=== PATIENT | female | born 1970 | race Caucasian/White ===

== ENCOUNTER 2016-06-28 10:18 | Observation (INO) | payer BC ==
[~2016-06-28] VITALS: Ht 157.5 cm; Wt 107.3 kg
[~2016-06-28 10:18] MED LIST: CLR10 PO
[2016-06-28] MEDS ORDERED: LISI-461 PO (10:40)
[2016-06-28] MEDS ORDERED: CEFD1CAP14 PO (10:43)
[2016-06-28] MEDS ORDERED: LEVO1TAB34 PO (10:43)
--- NOTE | 2016-06-28 11:13 | EMERGENCY ROOM VISIT NOTE ---
History Report prepared by Sherwin: Scout Membreno Under the Supervision of: Dr. Yina Matt M.D. First contact with patient: 10:28 Chief Complaint: NEURO SYMPTOMS Stated Complaint: NUMBNESS IN LEGS Nursing Triage Summary: pt was given levaquin for tx for pneumonia, spouse reports immediately after taking pt became very "jittery" bouncing off the david", then started with numbness in BLE History of Present Illness The patient is a 46 year old female who presents to the Emergency Room with complaints of persistent numbness in her legs that started 3 days ago. The patient notes that she started taking Levaquin 3 days ago for pneumonia and that her symptoms started after her first dose. Per patient's , the patient started acting "goofy" after the dose. The patient then started to complain of numbness and tingling in both of her lower extremities from her knees down to her toes. She notes that the discomfort started in her left leg and slowly her right leg has started to go completely numb. The patient is unsure of whether or not the symptoms started at her toes and kaitlynn up her leg. She also notes numbness, difficulty with coordination, and feeling jittery in her arms. She describes the weakness as feeling like she is going to collapse or fall over when she stands or walks. The patient notes she has been holding on to things to make sure she doesn't fall. The patient denies any history of problems with her legs and numbness before this episode. She presented to the ED today because her symptoms worsened. She was evaluated by Dr. Hoyt - internal medicine in the clinic today. After consultation with Dr Paul of neurology, it was determined that the pt should be evaluated acutely. The patient notes that she had a fever 6 days ago with her pneumonia symptoms, but denies fevers since then. She also denies numbness or tingling in her hands or losing control of her bowels or bladder. Source of History: patient Onset: 3 days ago Position: leg (bilateral) Timing: worsening, other (persistent ) Associated Symptoms: + fevers (6 days ago, since resolved), + numbness (legs ), + weakness (legs) Note: Other associated symptoms: tingling in lower legs, acting "goofy", difficulty with coordination, feeling jittery in arms Denies: numbness or tinglign in her hands Review of Systems See HPI for pertinent positives & negatives. A total of 10 systems reviewed and were otherwise negative. Past Medical & Surgical Medical Problems: (1) Allergic rhinitis (2) Hypertension (3) Paresthesia of bilateral legs (4) Surgical Problems: (1) H/O knee surgery Family History Diabetes mellitus FHx: hypertension No pertinent family history Social History Smoking Status: Never Smoker Drug Use: none Marital Status: Housing Status: lives with family Occupation Status: employed Current/Historical Medications Scheduled Cefdinir (Omnicef), 300 MG PO Q12H Lisinopril (Prinivil), 5 MG PO DAILY Loratadine (Claritin), 10 MG PO DAILY Allergies Coded Allergies: Sulfa Antibiotics (Verified Allergy, Unknown, Unknown reaction, 06/28/16) Levofloxacin (Verified Adverse Reaction, Intermediate, NUMBNESS, 06/29/16) LOWER EXTREMITY NUMBNESS FROM KNEES DOWN Ciprofloxacin (Verified Adverse Reaction, Mild, NAUSEA, 06/28/16) Guaifenesin (Verified Adverse Reaction, Mild, N/V, 06/28/16) Physical Exam Vital Signs Date Time Temp Pulse Resp B/P Pulse Ox O2 Delivery O2 Flow Rate FiO2 06/28/16 13:38 92 16 132/83 92 Room Air 06/28/16 13:33 101 06/28/16 12:08 82 16 159/88 98 Room Air 06/28/16 10:21 37.1 103 18 159/83 98 Room Air Physical Exam Vital signs reviewed. General: Obese generally well-appearing female, in no significant distress. HEENT: No scleral icterus, PERRLA, neck supple. Atraumatic. Cardiovascular: Regular rate and rhythm, no extra sounds. Pulmonary: Clear to auscultation bilaterally, normal work of breathing. Abdomen: Soft, nontender, nondistended, positive bowel sounds. Musculoskeletal: Atraumatic, no peripheral edema. Two plus deep tendon reflexes to bilateral patellar tendons. Full strength to bilateral lower extremity. Neurologic: Patient awake alert and oriented x 3, full strength in all 4 extremities. Cranial nerves 2 through 12 grossly intact. Skin: Warm, dry, no rash Medical Decision & Procedures ER Provider Diagnostic Interpretation: MRI results as stated below per interpretation by me and the radiologist: MRI OF THE LUMBAR SPINE WITHOUT CONTRAST CLINICAL HISTORY: Lumbar radiculopathy. Leg numbness. COMPARISON STUDY: No previous studies for comparison. TECHNIQUE: Utilizing a 1.5 Alondra magnet and dedicated coil, multiplanar, multiecho imaging of the lumbar spine was performed without IV contrast. FINDINGS: For purposes of numbering on this exam, the L5-S1 disc space is assigned to axial image 23 of 25. Alignment of lumbar spine is anatomic. Vertebral body heights are maintained. No intracanalicular mass or fluid collection is present. Paravertebral soft tissues are unremarkable. Note is made of an 8.2 x 6.8 cm midline fat-containing mass within the upper anterior aspect of the pelvis. The left ovary is likely visualized and therefore, this lesion may arise from the right ovary. L1-2: The central canal and neural foramen are patent. L2-3: The central canal and neural foramen are patent. L3-4: The central canal and neural foramen are patent. L4-5: The central canal and neural foramen are patent. L5-S1: The central canal and neural foramen are patent. IMPRESSION: 1. Unremarkable MRI of the lumbar spine. No disc herniation. No central canal or neural foraminal stenosis. 2. 8.2 x 6.8 cm midline fat-containing mass within the upper anterior pelvis. 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 A follow-up pelvic ultrasound is recommended. Electronically signed by: Gian Diggs M.D. 06/28/2016 1:20 PM Dictated Date/Time: 06/28/2016 1:12 PM Laboratory Results Test 06/28/16 11:55 Immature Granulocyte % (Auto) 0.3 % White Blood Count 11.44 K/uL (4.8-10.8) Red Blood Count 5.18 M/uL (4.2-5.4) Hemoglobin 14.7 g/dL (12.0-16.0) Hematocrit 44.0 % (37-47) Mean Corpuscular Volume 84.9 fL (80-100) Mean Corpuscular Hemoglobin 28.4 pg (25-34) Mean Corpuscular Hemoglobin Concent 33.4 g/dl (32-36) Platelet Count 303 K/uL (130-400) Mean Platelet Volume 9.1 fL (7.4-10.4) Neutrophils (%) (Auto) 66.5 % Lymphocytes (%) (Auto) 27.2 % Monocytes (%) (Auto) 3.9 % Eosinophils (%) (Auto) 1.8 % Basophils (%) (Auto) 0.3 % Neutrophils # (Auto) 7.60 K/uL (1.4-6.5) Lymphocytes # (Auto) 3.11 K/uL (1.2-3.4) Monocytes # (Auto) 0.45 K/uL (0.11-0.59) Eosinophils # (Auto) 0.21 K/uL (0-0.5) Basophils # (Auto) 0.04 K/uL (0-0.2) Immature Granulocyte # (Auto) 0.03 K/uL (0.00-0.02) Erythrocyte Sedimentation Rate 24 mm/hr (0-21) Magnesium Level 2.1 mg/dl (1.8-2.4) Total Bilirubin 0.3 mg/dl (0.2-1) Direct Bilirubin < 0.1 mg/dl (0-0.2) Aspartate Amino Transf (AST/SGOT) 17 U/L (15-37) Alanine Aminotransferase (ALT/SGPT) 29 U/L (12-78) Alkaline Phosphatase 74 U/L (45-117) Total Creatine Kinase 74 U/L (26-192) C-Reactive Protein 0.96 mg/dl (0-0.29) Total Protein 7.5 gm/dl (6.4-8.2) Albumin 3.5 gm/dl (3.4-5.0) Thyroid Stimulating Hormone (TSH) 1.460 uIu/ml (0.300-4.500) Laboratory results per my review. ED Course 1041: Past medical records reviewed. The patient was evaluated in room A4. A complete history and physical examination was performed. 1346: At this time, I discussed the patient's case with Dr. Humberto Hillman and he agreed with the treatment plan. He requested an MRI of her entire spine with and without contrast. He thinks that patient needs to be worked up in the hospital. 1426: At this time, I discussed the patient's case with Dr. Elio COELHO and she planned to discuss the patient's case with Dr. Humberto Hillman. 1515: At this time, Dr. Elio Hillman agreed to accept the patient. Medical Decision Differential diagnoses: Etiologies include lumbar disc herniation, myelopathy, Guillain-Hope syndrome, metabolic abnormality, or medication effect. This pt was evaluated and appeared to be in no distress. Pt admits that her symptoms are stable since the onset several days ago. DTR are intact. An MRI of lumbar spine was ordered to r/o radiculopathy. This study is negative for disc herniation or other spine concern, although a mass was visualized, approx 8 cm, was noted. 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 I did speak with Dr Paul who recommends inpatient evaluation for possible paraneoplastic syndrome vs GBS. He has also recommended a full spine MRI with and without contrast. Pt was d/w the hospitalist service who agreed to evaluated the pt. Please see their notes for further details. Consults Time Called: 1341 Consulting Physician: Dr. Paul - Neurology Rafy Returned Call: [phone] At this time, I discussed the patient's case with Dr. Paul and he agreed with the treatment plan. He requested an MRI of her entire spine with and without contrast. He thinks that patient needs to be worked up in the hospital. Additional Consults: Time Called: 1422 Consulted Physician: Dr. Ballard - Rinku Hillman Returned Call: 1424 Additional Comments: At this time, I discussed the patient's case with Dr. Ballard and she agreed to discuss the patient's case with Dr. Paul. Time Called: 1510 Consulted Physician: Dr. Ballard - Rinku Hillman Returned Call: [phone] Additional Comments: At this time, Dr. Ballard agreed to accept the patient. Impression Primary Impression: Paresthesia of bilateral legs Scribe Attestation The scribe's documentation has been prepared under my direction and personally reviewed by me in its entirety. I confirm that the note above accurately reflects all work, treatment, procedures, and medical decision making performed by me. Departure Information Dispostion Being Evaluated By Hospitalist Prescriptions Cefdinir (Omnicef) 300 Mg Cap 300 MG PO Q12H for 2 Days, #4 CAP X 10 DAYS (FILLED 06/22/16) Prov: Tyler Gaytan, 06/29/16 Referrals Mio Hoyt D.O. (PCP)
[2016-06-28 12:31] LABS: BLOOD UREA NITROGEN 13 mg/dl (7-18); CREATININE 0.66 mg/dl (0.60-1.20); GLUCOSE 79 mg/dl (70-99)
[2016-06-28 12:32] LABS: ALT/SGPT 29 U/L (12-78); BUN/CREATININE RATIO 19.1 (10-20); C-REACTIVE PROTEIN 0.96 mg/dl (0-0.29); CALCIUM 9.4 mg/dl (8.5-10.1); CARBON DIOXIDE 24 mmol/L (21-32); CHLORIDE 105 mmol/L (98-107); MAGNESIUM 2.1 mg/dl (1.8-2.4); POTASSIUM 3.9 mmol/L (3.5-5.1); SODIUM 140 mmol/L (136-145)
[2016-06-28 12:36] LABS: ALKALINE PHOSPHATASE 74 U/L (45-117); AST/SGOT 17 U/L (15-37)
--- NOTE | 2016-06-28 13:21 | DIAGNOSTIC IMAGING REPORT ---
MRI OF THE LUMBAR SPINE WITHOUT CONTRAST CLINICAL HISTORY: Lumbar radiculopathy. Leg numbness. COMPARISON STUDY: No previous studies for comparison. TECHNIQUE: Utilizing a 1.5 Alondra magnet and dedicated coil, multiplanar, multiecho imaging of the lumbar spine was performed without IV contrast. FINDINGS: For purposes of numbering on this exam, the L5-S1 disc space is assigned to axial image 23 of 25. Alignment of lumbar spine is anatomic. Vertebral body heights are maintained. No intracanalicular mass or fluid collection is present. Paravertebral soft tissues are unremarkable. Note is made of an 8.2 x 6.8 cm midline fat-containing mass within the upper anterior aspect of the pelvis. The left ovary is likely visualized and therefore, this lesion may arise from the right ovary. L1-2: The central canal and neural foramen are patent. L2-3: The central canal and neural foramen are patent. L3-4: The central canal and neural foramen are patent. L4-5: The central canal and neural foramen are patent. L5-S1: The central canal and neural foramen are patent. IMPRESSION: 1. Unremarkable MRI of the lumbar spine. No disc herniation. No central canal or neural foraminal stenosis. 2. 8.2 x 6.8 cm midline fat-containing mass within the upper anterior pelvis. 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 A follow-up pelvic ultrasound is recommended. Electronically signed by: Gian Diggs M.D. 06/28/2016 1:20 PM Dictated Date/Time: 06/28/2016 1:12 PM
[2016-06-28 13:34] LABS: BASO % 0.3 %; BASO ABS # 0.04 K/uL (0-0.2); COMPLETE YES; EOS % 1.8 %; IG% 0.3 %; LYMPH % 27.2 %; LYMPH ABS # 3.11 K/uL (1.2-3.4); MEAN CELL VOLUME 84.9 fL (80-100); MEAN CORPUSCULAR HEMOGLOBIN 28.4 pg (25-34); MEAN CORPUSCULAR HGB CONC 33.4 g/dl (32-36); MEAN PLATELET VOLUME 9.1 fL (7.4-10.4); MONO % 3.9 %; NEUT % 66.5 %; PLATELET COUNT 303 K/uL (130-400); RED BLOOD COUNT 5.18 M/uL (4.2-5.4); WHITE BLOOD COUNT 11.44 K/uL (4.8-10.8)
[2016-06-28] MEDS ORDERED: LISI5TAB PO (15:42)
[2016-06-28] MEDS ORDERED: ACETAMINOPHEN 325 MG TAB PO PRN (15:45)
[2016-06-28] MEDS ORDERED: ACETAMINOPHEN 325 MG TAB ONE (16:11)
--- NOTE | 2016-06-28 16:20 | History and Physical ---
History & Physical Date & Time of Service: Jun 28, 2016 at 15:45 Chief Complaint: Numbness In Legs Primary Care Physician: Mio Hoyt D.O. History of Present Illness 46 yoF with h/o HTN presents today with numbness in her lower legs to just above the knee since Tue/Tue (2-3 days ago). The numbness occurred just after taking one dose of Levaquin which was switched from Omnicef for a treatment course of pneumonia. Her pneumonia was found on xray 7 days ago () and at that time she was started on Omnicef. She developed some loose stools and was given Levaquin on Tuesday. Within 1 hour she became loopy and appearing doped up to her , and the numbness started around that time or one day later but she can't remember exactly. She denies any recent vaccines. She is not sure of her allergy to Ciprofloxacin in the past. She has no h/o GBS in the past. She does report problems with walking but denies any dizziness or lightheadedness and states that it is more related to where her foot is in space that causes difficulty walking. She denies any weakness in her extremities. She reports no saddle paresthesias. 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) Immunizations History of Influenza Vaccine: Yes Influenza Vaccine Date: Dec 15, 2015 History of Tetanus Vaccine?: Yes Tetanus Immunization Date: May 13, 1990 History of Pneumococcal: No History of Hepatitis B Vaccine: No Multi-Drug Resistant Organisms History of MDRO: No Allergies Coded Allergies: Sulfa Drugs (Verified Allergy, Unknown, UNKNOWN, 03/10/15) Ciprofloxacin (Unverified Adverse Reaction, Intermediate, NAUSEA, 06/28/16) Guaifenesin (Verified Adverse Reaction, Intermediate, N/V, 03/10/15) Home Medications Scheduled Cefdinir (Omnicef), 300 MG PO Q12H Lisinopril (Prinivil), 5 MG PO DAILY Loratadine (Claritin), 10 MG PO DAILY Review of Systems Constitutional: No chills, No fever, No weakness Eyes: No problem reported ENT: No sore throat Respiratory: No cough, No shortness of breath, No sputum Cardiovascular: No chest pain Abdomen: + diarrhea, No nausea, No pain, No vomiting Musculoskeletal: + problem reported (numbness in lower legs for 2-3 days), No calf pain, No joint pain, No muscle pain Genitourinary - Female: No dysuria, No , No problem reported Neurologic: + balance problems, + numbness/tingling, No vertigo, No weakness Psychiatric: No anxiety, No depression symptoms Integumentary: No rash Allergic / Immunologic: + environmental allergies Physical Exam Vital Signs Date Time Temp Pulse Resp B/P Pulse Ox O2 Delivery O2 Flow Rate FiO2 06/28/16 13:38 92 16 132/83 92 Room Air 06/28/16 13:33 101 06/28/16 12:08 82 16 159/88 98 Room Air 06/28/16 10:21 37.1 103 18 159/83 98 Room Air GEN: WNWD, in no acute distress, alert and appropriate HEENT: NC/AT, PERRL, normal sclerae CARDIO: reg rate, S1/2 heard without m/g/r LUNGS: CTA bilaterally, no crackles, rales or wheezes, good diaphragmatic excursion ABD: soft, non-tender, non-distended, no rebound or guarding EXTREMITY: no LE swelling or edema, extremities are warm and well-perfused NEURO: CN 2-12 grossly intact, sensation intact throughout, however, there is numbness to palpation on both soles of feet and on both medial calves, (reflexes ) BR 2+ bilat, knee 2+ on right, could not elicit on L, achilles 2+ bilat MUSC: 5/5 strength throughout, no focal deficits, gait not assessed SKIN: warm and dry Diagnostics Laboratory Results Results Past 24 Hours Test 06/28/16 11:55 Range/Units White Blood Count 11.44 4.8-10.8 K/uL Red Blood Count 5.18 4.2-5.4 M/uL Hemoglobin 14.7 12.0-16.0 g/dL Hematocrit 44.0 37-47 % Mean Corpuscular Volume 84.9 80-100 fL Mean Corpuscular Hemoglobin 28.4 25-34 pg Mean Corpuscular Hemoglobin Concent 33.4 32-36 g/dl Platelet Count 303 130-400 K/uL Mean Platelet Volume 9.1 7.4-10.4 fL Neutrophils (%) (Auto) 66.5 % Lymphocytes (%) (Auto) 27.2 % Monocytes (%) (Auto) 3.9 % Eosinophils (%) (Auto) 1.8 % Basophils (%) (Auto) 0.3 % Neutrophils # (Auto) 7.60 1.4-6.5 K/uL Lymphocytes # (Auto) 3.11 1.2-3.4 K/uL Monocytes # (Auto) 0.45 0.11-0.59 K/uL Eosinophils # (Auto) 0.21 0-0.5 K/uL Basophils # (Auto) 0.04 0-0.2 K/uL RDW Standard Deviation 42.3 36.4-46.3 fL RDW Coefficient of Variation 13.7 11.5-14.5 % Immature Granulocyte % (Auto) 0.3 % Immature Granulocyte # (Auto) 0.03 0.00-0.02 K/uL Erythrocyte Sedimentation Rate 24 0-21 mm/hr Sodium Level 140 136-145 mmol/L Potassium Level 3.9 3.5-5.1 mmol/L Chloride Level 105 98-107 mmol/L Carbon Dioxide Level 24 21-32 mmol/L Anion Gap 11.0 3-11 mmol/L Blood Urea Nitrogen 13 7-18 mg/dl Creatinine 0.66 0.60-1.20 mg/dl Est Creatinine Clear Calc Drug Dose 125.3 ml/min Estimated GFR () 124.5 Estimated GFR (Non- 107.4 BUN/Creatinine Ratio 19.1 10-20 Random Glucose 79 70-99 mg/dl Calcium Level 9.4 8.5-10.1 mg/dl Magnesium Level 2.1 1.8-2.4 mg/dl Total Bilirubin 0.3 0.2-1 mg/dl Direct Bilirubin < 0.1 0-0.2 mg/dl Aspartate Amino Transf (AST/SGOT) 17 15-37 U/L Alanine Aminotransferase (ALT/SGPT) 29 12-78 U/L Alkaline Phosphatase 74 45-117 U/L Total Creatine Kinase 74 26-192 U/L C-Reactive Protein 0.96 0-0.29 mg/dl Total Protein 7.5 6.4-8.2 gm/dl Albumin 3.5 3.4-5.0 gm/dl Diagnostic Radiology L-spine MRI without contrast: IMPRESSION: 1. Unremarkable MRI of the lumbar spine. No disc herniation. No central canal or neural foraminal stenosis. 2. 8.2 x 6.8 cm midline fat-containing mass within the upper anterior pelvis. 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 A follow-up pelvic ultrasound is recommended. Normal EKG (SR 93) Impression Assessment and Plan 46 yo F with h/o HTN found to have teratoma on R ovary, presents with difficulty walking for the past 2 days and numbness in her lower extremities to just above the knee that is unchanged for the past two days. 1. Paresthesia in lower extremities. With recent clinical pneumonia, ascending numbness is concerning for GBS, however, her numbness is only on the medial calves and soles of feet. This lack of proprioceptive input appears to be drivin gthe complaint of difficulty walking as opposed to weakness and strength is intact on exam. Myelitis is also in the differential so I am ordering an MRI brain and spinal cord with contrast to rule this out. Neurology was consulted and agrees with this plan. There is no change in personality or altered mental status, so it is uncertain at this point if there are any symptoms from the incidental teratoma that was found. Will consult FOOD STOREROOM CLERK for workup which will liekly include a pelvic ultrasound, but will defer to FOOD STOREROOM CLERK to order this. She also may need a non-urgent spinal tap to run a paraneoplastic panel on her CSF, however, will defer to primary team for that decision. She is otherwise hemodynamically stable. It is uncertain but less likely that this could be an allergic reaction of some kind, as there was no rash, throat swelling or other allergic symptom. However, she did become acutely confused after takin gthe Levaquin so this is in the differential. 2. Hypertension-at baseline, cont Lisinopril 3. R ovarian teratoma-FOOD STOREROOM CLERK consulted for additional workup 4. CAP-symptoms have resolved, but will cont her Omnicef for the 10 day course. Will repeat CXR to establish new baseline. DVT-Lovenox Nutrition-Heart Healthy Full Code Zeynep De Queen, DO Hospitalist Level of Care Telemetry Resuscitation Status FULL RESUSCITATION VTE Prophylaxis VTE Risk Assessment Done? Y/N: Yes Risk Level: Moderate Given or contraindicated: Enoxaparin (Lovenox)SQ
--- NOTE | 2016-06-28 16:52 | DIAGNOSTIC IMAGING REPORT ---
SINGLE VIEW CHEST CLINICAL HISTORY: Dyspnea. Reported history of recent pneumonia. FINDINGS: An AP, portable, upright chest radiograph is compared to chest x-ray and chest CT dated 03/10/2015. The examination is degraded by portable technique, large body habitus, and patient rotation. The cardiomediastinal silhouette is unremarkable. The lungs and pleural spaces are clear. No pneumothorax is seen. The bony thorax is grossly intact. IMPRESSION: No active disease in the chest. Electronically signed by: Salvatore Navarro M.D. 06/28/2016 4:51 PM Dictated Date/Time: 06/28/2016 4:50 PM
[2016-06-28 17:13] LABS: PROTHROMBIN TIME (PATIENT) 10.4 SECONDS (9.0-12.0)
--- NOTE | 2016-06-28 17:37 | Neurology Consultation ---
Neurology Consultation Date of Consultation: Jun 28, 2016. Attending Physician: Primary Care Physician: Mio Hoyt D.O. Reason for Consultation: acute paresthesias and inability to walk History of Present Illness Source: patient, spouse Theresa is a 46 year old female with h/o HTN presents today with numbness in her lower legs to just above the knee since Tue/Tue (2-3 days ago). The numbness occurred just after taking one dose of Levaquin which was switched from Omnicef for a treatment course of pneumonia. She developed some loose stools and was given Levaquin on Tuesday. Within 1 hour she had numbness and tingling which started in her feet and progressed over the next few hours to her knees. She also had numbness up to her hips but that has resolved. Her grandfather had Parkinson and her aunt recently had Parkinson's disease. she was primarily assess in the PCP office by neurology and she was walking but very tentatively she states it was due to the numb feeling not because her feet or legs hurt and she does not feel weak. She denies any back surgery in the past or any falls. She currently denies pain, weakness, headache , CP, SOB, abdominal pain, vision changes N, V. 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) Allergies Coded Allergies: Sulfa Antibiotics (Verified Allergy, Unknown, Unknown reaction, 06/28/16) Ciprofloxacin (Verified Adverse Reaction, Mild, NAUSEA, 06/28/16) Guaifenesin (Verified Adverse Reaction, Mild, N/V, 06/28/16) Current Inpatient Medications Current Inpatient Medications Medications (Trade) Dose Ordered Sig/Power Route Start Time Stop Time Status Last Admin Dose Admin Enoxaparin Sodium (Lovenox Inj) 40 mg Q24H SC 06/28/16 15:45 07/28/16 15:44 UNV Acetaminophen (Tylenol Tab) 650 mg Q4H PRN PO 06/28/16 15:45 07/28/16 15:44 UNV Polyethylene (Miralax Powder Packet) 17 gm DAILY PRN PO 06/28/16 15:45 07/28/16 15:44 UNV Lisinopril (Zestril Tab) 5 mg DAILY PO 06/29/16 09:00 07/29/16 08:59 UNV Loratadine (Claritin Tab) 10 mg DAILY PO 06/29/16 09:00 07/29/16 08:59 UNV Non-Formulary Medication (Cefdinir (Omnicef)) 300 mg Q12H PO 06/28/16 15:45 07/01/16 15:44 UNV Physical Exam Vital Signs (Past 24 Hrs): Date Time Temp Pulse Resp B/P Pulse Ox O2 Delivery O2 Flow Rate FiO2 06/28/16 15:57 109 18 137/80 96 Room Air 06/28/16 13:38 92 16 132/83 92 Room Air 06/28/16 13:33 101 06/28/16 12:08 82 16 159/88 98 Room Air 06/28/16 10:21 37.1 103 18 159/83 98 Room Air Physical Exam: Constitutional: appearance nourished, healthy and obese Ears, Nose, Mouth and Throat: mucous membranes moist, no injection and skin normal, eyes normal Cardiovascular: normal S-1 and S-2 and regular rate and rhythm Respiratory: course breath sounds Musculoskeletal: no peripheral edema and good distal pulses Skin: no stigmata of neurocutaneous disease noted and normal and intact Eyes: extraocular muscles intact (EOMI) and pupils equal, round and reactive to light (PERRL), good vascular pulsations, disc flat NEUROLOGIC EXAMINATION: Mental status: Alert and interactive Oriented to full date and location Oriented to person Speech fluent with no evidence of aphasia Cranial Nerves smile eye brow raise symmetric Reflexes: Deep tendon reflexes were symmetrical and graded 2/5. Plantar responses were flexor. Sensory: no sensory deficit to light touch, cool, vibration, GT proprioception intact Coordination: finger to nose without bi pass or tremor Gait/Stance: gait tandem tentative but steady. Motor: Negative for pronator drift of out stretched arms with eyes closed. 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 technologist 5/5 bilaterally, hip flex plantar flex ext 5/ 5 bilaterally Laboratory Results Past 24 Hours: 06/28/16 11:55 Red Blood Count 5.18, Mean Corpuscular Volume 84.9, Mean Corpuscular Hemoglobin 28.4, Mean Corpuscular Hemoglobin Concent 33.4, Mean Platelet Volume 9.1, Neutrophils (%) (Auto) 66.5, Lymphocytes (%) (Auto) 27.2, Monocytes (%) (Auto) 3.9, Eosinophils (%) (Auto) 1.8, Basophils (%) (Auto) 0.3, Neutrophils # (Auto) 7.60, Lymphocytes # (Auto) 3.11, Monocytes # (Auto) 0.45, Eosinophils # (Auto) 0.21, Basophils # (Auto) 0.04 06/28/16 11:55 Test 06/28/16 11:55 06/28/16 15:54 White Blood Count 11.44 K/uL (4.8-10.8) Red Blood Count 5.18 M/uL (4.2-5.4) Hemoglobin 14.7 g/dL (12.0-16.0) Hematocrit 44.0 % (37-47) Mean Corpuscular Volume 84.9 fL (80-100) Mean Corpuscular Hemoglobin 28.4 pg (25-34) Mean Corpuscular Hemoglobin Concent 33.4 g/dl (32-36) Platelet Count 303 K/uL (130-400) Mean Platelet Volume 9.1 fL (7.4-10.4) Neutrophils (%) (Auto) 66.5 % Lymphocytes (%) (Auto) 27.2 % Monocytes (%) (Auto) 3.9 % Eosinophils (%) (Auto) 1.8 % Basophils (%) (Auto) 0.3 % Neutrophils # (Auto) 7.60 K/uL (1.4-6.5) Lymphocytes # (Auto) 3.11 K/uL (1.2-3.4) Monocytes # (Auto) 0.45 K/uL (0.11-0.59) Eosinophils # (Auto) 0.21 K/uL (0-0.5) Basophils # (Auto) 0.04 K/uL (0-0.2) RDW Standard Deviation 42.3 fL (36.4-46.3) RDW Coefficient of Variation 13.7 % (11.5-14.5) Immature Granulocyte % (Auto) 0.3 % Immature Granulocyte # (Auto) 0.03 K/uL (0.00-0.02) Erythrocyte Sedimentation Rate 24 mm/hr (0-21) Anion Gap 11.0 mmol/L (3-11) Est Creatinine Clear Calc Drug Dose 125.3 ml/min Estimated GFR () 124.5 Estimated GFR (Non- 107.4 BUN/Creatinine Ratio 19.1 (10-20) Calcium Level 9.4 mg/dl (8.5-10.1) Magnesium Level 2.1 mg/dl (1.8-2.4) Total Bilirubin 0.3 mg/dl (0.2-1) Direct Bilirubin < 0.1 mg/dl (0-0.2) Aspartate Amino Transf (AST/SGOT) 17 U/L (15-37) Alanine Aminotransferase (ALT/SGPT) 29 U/L (12-78) Alkaline Phosphatase 74 U/L (45-117) Total Creatine Kinase 74 U/L (26-192) C-Reactive Protein 0.96 mg/dl (0-0.29) Total Protein 7.5 gm/dl (6.4-8.2) Albumin 3.5 gm/dl (3.4-5.0) Imaging MRI lumbar spine- with and without- . Unremarkable MRI of the lumbar spine. No disc herniation. No central canal or neural foraminal stenosis. 2. 8.2 x 6.8 cm midline fat-containing mass within the upper anterior pelvis. 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 A follow-up pelvic ultrasound is recommended. Impression 46 year old female with LE numbness and tingling reportedly after Levaquin dosing. possible myelitis, vs peripheral neuritis such as GBS vs paraneoplastic syndrome due to ovarian mass Plan 1. will need MRI brain, c spine, T spine and L spine with and without -L spine completed 2. continue pneumonia treatment for appropriate treatment 3. may need LP to evaluate for infection or viral etiology 4. PT/OT for safety issues 5. fall precautions 6. q 2 hour neuro check with close observation and call with any change in exam 7. will continue to follow and will have further recommendations once MRI's are completed I have seen and discussed above patient with Dr Jeana Webb, neurology Pt seen, hx obtained, examined. URIthen dx pneumonia, antibiotic switched to levaquin on Tuesday. Within 1 hour pt was as "high as a kite" and hand nonprogressive numbness to knees. Sx persisted so she came to office and was sent to ER. No prior neuro sx, no spine pain, Lhermittes,b/b incontinence, headache or autonomic sx. My exam is normal. MRI L spine R ovarian teratoma ( reviewed). Nature sx unclear, query neuritis such as AIDP, exam showing no subtle evidence of the same, query myelitis, query paraneoplastic. REc pain spine and brain MRI with and without. Will likely need LP and possibly paraneoplastic antibodies. NCV possibly as outpt if sx persist and gonzalez otherwise unremarkable. NIALL Webb MD
[2016-06-28 18:00] VITALS: O2SAT 97
[2016-06-28 18:20] VITALS: BP 153/97; PULSE 86; TEMP 36.9; O2SAT 96
[2016-06-28 18:48] VITALS: Ht 157.5 cm; Wt 107.3 kg
[2016-06-28] MEDS ORDERED: POLYETHYLENE (MIRALAX) 17 GM PACK PO PRN (19:00)
[2016-06-28 20:00] VITALS: BP 129/87; PULSE 85; PULSE 90; TEMP 36.9; O2SAT 96; O2SAT 98
[2016-06-28] MEDS ORDERED: ENOXAPARIN 40 MG/0.4 ML SYR SC SCH (21:00)
[2016-06-28] MEDS: CEFDINIR 250 MG/5 ML 60 ML PO SCH (21:28)
[2016-06-29] VITALS (7 sets, daily range): BP systolic 101–157; BP diastolic 54–108; PULSE 54–100; TEMP 36.6–37; O2SAT 91–96
[2016-06-29 05:43] LABS: HEMATOCRIT 42.5 % (37-47); MEAN CELL VOLUME 85.5 fL (80-100); MEAN CORPUSCULAR HGB CONC 33.9 g/dl (32-36); PLATELET COUNT 302 K/uL (130-400); RED BLOOD COUNT 4.97 M/uL (4.2-5.4); WHITE BLOOD COUNT 10.13 K/uL (4.8-10.8)
[2016-06-29 06:14] LABS: BUN/CREATININE RATIO 23.8 (10-20); CALCIUM 8.8 mg/dl (8.5-10.1); CREATININE 0.69 mg/dl (0.60-1.20); POTASSIUM 3.8 mmol/L (3.5-5.1)
[2016-06-29] MEDS ORDERED: LORATADINE 10 MG TAB PO SCH (09:00)
[2016-06-29] MEDS ORDERED: LISINOPRIL 5 MG TAB PO SCH (09:00)
--- NOTE | 2016-06-29 09:29 | Progress Note ---
Subjective Date of Service: Jun 29, 2016. Subjective Pt evaluation today including: conversation w/ patient, physical exam, lab review, review of studies, review of inpatient medication list Saw/examined the patient in room 110 She denies any symptoms today the numbness/tingling in b/l LE has resolved States she could not perform MRI due to claustrophobia - only partially done Eating well, ambulating well Problem List Medical Problems: (1) Myelitis Status: Acute Review of Systems Constitutional: + weakness, No chills, No fever Respiratory: No cough, No dyspnea at rest, No dyspnea on exertion, No hemoptysis, No shortness of breath, No sputum, No wheezing Cardiac: No chest pain, No edema, No palpitations Abdomen: No diarrhea, No nausea, No pain, No vomiting Musculoskeletal: No joint pain Female : No dysuria, No hematuria, No urinary frequency Heme: No abnormal bleeding/bruising Medications Current Inpatient Medications Medications (Trade) Dose Ordered Sig/Power Route Start Time Stop Time Status Last Admin Dose Admin Enoxaparin Sodium (Lovenox Inj) 40 mg HS SC 06/28/16 21:00 07/28/16 20:59 06/28/16 21:31 40 MG Acetaminophen (Tylenol Tab) 650 mg Q4H PRN PO 06/28/16 15:45 07/28/16 15:44 Polyethylene (Miralax Powder Packet) 17 gm DAILY PRN PO 06/28/16 19:00 07/28/16 18:59 Lisinopril (Zestril Tab) 5 mg DAILY PO 06/29/16 09:00 07/29/16 08:59 Loratadine (Claritin Tab) 10 mg DAILY PO 06/29/16 09:00 07/29/16 08:59 Cefdinir (Omnicef Susp) 300 mg Q12 PO 06/28/16 21:00 07/01/16 09:01 06/28/16 21:28 300 MG Objective Vital Signs Date Time Temp Pulse Resp B/P Pulse Ox O2 Delivery O2 Flow Rate FiO2 06/29/16 04:00 Room Air 06/29/16 04:00 36.6 78 15 143/92 Room Air 06/29/16 00:26 Room Air 06/29/16 00:26 36.6 90 15 142/108 96 Room Air 06/28/16 20:00 Room Air 06/28/16 20:00 36.9 90 20 129/87 96 Room Air 06/28/16 20:00 36.9 85 19 129/87 98 Room Air 06/28/16 18:48 Room Air 06/28/16 18:20 36.9 86 17 153/97 96 Room Air 06/28/16 18:00 95 18 147/98 97 06/28/16 15:57 109 18 137/80 96 Room Air 06/28/16 13:38 92 16 132/83 92 Room Air 06/28/16 13:33 101 06/28/16 12:08 82 16 159/88 98 Room Air 06/28/16 10:21 37.1 103 18 159/83 98 Room Air Physical Exam General Appearance: no apparent distress, + obese Respiratory/Chest: lungs clear, normal breath sounds, no respiratory distress, no accessory muscle use Cardiovascular: regular rate, rhythm, no edema, no murmur Abdomen: normal bowel sounds, non tender, soft Extremities: normal inspection, no pedal edema Neurologic/Psychiatric: no motor/sensory deficits, alert, normal mood/affect, + pertinent finding (no motor or sensory deficits) Laboratory Results Last 24 Hours Test 06/28/16 11:55 06/28/16 16:58 06/28/16 18:52 06/29/16 05:31 White Blood Count 11.44 K/uL 10.13 K/uL Red Blood Count 5.18 M/uL 4.97 M/uL Hemoglobin 14.7 g/dL 14.4 g/dL Hematocrit 44.0 % 42.5 % Mean Corpuscular Volume 84.9 fL 85.5 fL Mean Corpuscular Hemoglobin 28.4 pg 29.0 pg Mean Corpuscular Hemoglobin Concent 33.4 g/dl 33.9 g/dl Platelet Count 303 K/uL 302 K/uL Mean Platelet Volume 9.1 fL 9.0 fL Neutrophils (%) (Auto) 66.5 % Lymphocytes (%) (Auto) 27.2 % Monocytes (%) (Auto) 3.9 % Eosinophils (%) (Auto) 1.8 % Basophils (%) (Auto) 0.3 % Neutrophils # (Auto) 7.60 K/uL Lymphocytes # (Auto) 3.11 K/uL Monocytes # (Auto) 0.45 K/uL Eosinophils # (Auto) 0.21 K/uL Basophils # (Auto) 0.04 K/uL RDW Standard Deviation 42.3 fL 43.3 fL RDW Coefficient of Variation 13.7 % 14.0 % Immature Granulocyte % (Auto) 0.3 % Immature Granulocyte # (Auto) 0.03 K/uL Erythrocyte Sedimentation Rate 24 mm/hr Sodium Level 140 mmol/L 138 mmol/L Potassium Level 3.9 mmol/L 3.8 mmol/L Chloride Level 105 mmol/L 103 mmol/L Carbon Dioxide Level 24 mmol/L 25 mmol/L Anion Gap 11.0 mmol/L 10.0 mmol/L Blood Urea Nitrogen 13 mg/dl 16 mg/dl Creatinine 0.66 mg/dl 0.69 mg/dl Est Creatinine Clear Calc Drug Dose 125.3 ml/min 119.9 ml/min Estimated GFR () 124.5 122.7 Estimated GFR (Non- 107.4 105.9 BUN/Creatinine Ratio 19.1 23.8 Random Glucose 79 mg/dl 89 mg/dl Calcium Level 9.4 mg/dl 8.8 mg/dl Magnesium Level 2.1 mg/dl Total Bilirubin 0.3 mg/dl Direct Bilirubin < 0.1 mg/dl Aspartate Amino Transf (AST/SGOT) 17 U/L Alanine Aminotransferase (ALT/SGPT) 29 U/L Alkaline Phosphatase 74 U/L Total Creatine Kinase 74 U/L C-Reactive Protein 0.96 mg/dl Total Protein 7.5 gm/dl Albumin 3.5 gm/dl Thyroid Stimulating Hormone (TSH) 1.460 uIu/ml Prothrombin Time 10.4 SECONDS Prothromb Time International Ratio 1.0 Vitamin B12 Level 924 pg/mL 25-Hydroxy Vitamin D Total 25.5 ng/ml Folate 15.07 ng/mL Assessment and Plan This is a 46 year old female with PMH of obesity and HTN with recent diagnosis of community acquired pneumonia presented with bilateral lower extremity numbness/tingling which has since resolved Bilateral Lower Extremity Paresthesias/Numbness patient presented with bilateral numbness up to both knees myelitis vs. peripheral neuritis? Lumbar MRI performed with no significant lumbar findings R Ovarian teratoma noted on MRI Was to get spine MRI - could not be performed to completion due to patient's claustrophobia Patient at this point, refusing LP and other measures - states clinically resolved +ambulating well will await neurology input - outpatient EMG/NCV Right Ovarian Teratoma Lumbar MRI shows possible R Ovarian Teratoma Pelvic U/S pending for further delineation Hide Buyer consulted for further input Community Acquired Pneumonia Has been on antibiotics since 06/22 CXR done here shows no active chest disease Continue abx. for a total of 10 days, end date: 07/01 HTN BP controlled; cont. home medications DVT ppx SCDs FULL CODE
[2016-06-29] MEDS: CEFDINIR 250 MG/5 ML 60 ML PO SCH (10:25)
--- NOTE | 2016-06-29 11:53 | DIAGNOSTIC IMAGING REPORT ---
EXAMINATION: PELVIC ULTRASOUND CLINICAL HISTORY: OVARIAN TERATOMA COMPARISON STUDY: MRI dated 06/28/2016 FINDINGS: The uterus measured 10.1 cm. The endometrial stripe measured 8 mm. The right ovary measured 8.5 cm maximum dimension. Moderate echogenicity consistent with what appears to be dermoid involvement.. The left ovary measured 3.2 cm maximum dimension. 1.9 cm cyst. Normal vascular flow.. There is no ultrasonographic evidence of ovarian torsion. It should be noted that ovarian torsion can be present with normal Doppler ultrasonographic findings. There was no evidence of pathologic free pelvic fluid. IMPRESSION: 8 cm x 8.5 cm echogenic mass arising from what appears to be a right ovary. 2. 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 Small left ovarian cyst. 4. Study is otherwise negative Electronically signed by: Kaden Darnell M.D. 06/29/2016 11:52 AM Dictated Date/Time: 06/29/2016 11:46 AM
[2016-06-29 14:23] LABS: PREG INTERNAL NEGATIVE QC NEG CLEAR BACKGROUND; PREG INTERNAL POSITIVE QC POS CONTROL LINE
--- NOTE | 2016-06-29 16:37 | Neurology Progress Notes ---
Neurology Progress Note Date of Service Jun 29, 2016. Amanda Cardenas is a 46 year old female with h/o HTN presents today with numbness in her lower legs to just above the knee since Tue/Tue (2-3 days ago). The numbness occurred just after taking one dose of Levaquin which was switched from Omnicef for a treatment course of pneumonia. She developed some loose stools and was given Levaquin on Tuesday. Within 1 hour she had numbness and tingling which started in her feet and progressed over the next few hours to her knees. She also had numbness up to her hips but that has resolved. Her grandfather had Parkinson and her aunt recently had Parkinson's disease. she was primarily assess in the PCP office by neurology and she was walking but very tentatively she states it was due to the numb feeling not because her feet or legs hurt and she does not feel weak. She is currently walking around the room and states she wants to go home. She feels she is back to her baseline. The numbness and tingling have resolved. denies CP, SOB abdominal pain, one sided numbness tingling weakness, vision changes, N, V. She was only able to tolerate 1 hour of the MRI and then it was aborted. She is refusing to have a LP and doesn't want any further testing. Objective Date Time Temp Pulse Resp B/P Pulse Ox O2 Delivery O2 Flow Rate FiO2 06/29/16 12:00 Room Air 06/29/16 12:00 37.0 100 16 130/80 96 Room Air 06/29/16 08:00 36.8 96 16 141/92 95 Room Air 06/29/16 08:00 Room Air 06/29/16 04:00 Room Air 06/29/16 04:00 36.6 78 15 143/92 Room Air 06/29/16 00:26 Room Air 06/29/16 00:26 36.6 90 15 142/108 96 Room Air 06/28/16 20:00 Room Air 06/28/16 20:00 36.9 90 20 129/87 96 Room Air 06/28/16 20:00 36.9 85 19 129/87 98 Room Air 06/28/16 18:48 Room Air 06/28/16 18:20 36.9 86 17 153/97 96 Room Air 06/28/16 18:00 95 18 147/98 97 Last 24 Hours Test 06/28/16 16:58 06/28/16 18:52 06/29/16 05:31 06/29/16 14:00 Prothrombin Time 10.4 SECONDS Prothromb Time International Ratio 1.0 Vitamin B12 Level 924 pg/mL 25-Hydroxy Vitamin D Total 25.5 ng/ml Folate 15.07 ng/mL White Blood Count 10.13 K/uL Red Blood Count 4.97 M/uL Hemoglobin 14.4 g/dL Hematocrit 42.5 % Mean Corpuscular Volume 85.5 fL Mean Corpuscular Hemoglobin 29.0 pg Mean Corpuscular Hemoglobin Concent 33.9 g/dl RDW Standard Deviation 43.3 fL RDW Coefficient of Variation 14.0 % Platelet Count 302 K/uL Mean Platelet Volume 9.0 fL Sodium Level 138 mmol/L Potassium Level 3.8 mmol/L Chloride Level 103 mmol/L Carbon Dioxide Level 25 mmol/L Anion Gap 10.0 mmol/L Blood Urea Nitrogen 16 mg/dl Creatinine 0.69 mg/dl Est Creatinine Clear Calc Drug Dose 119.9 ml/min Estimated GFR () 122.7 Estimated GFR (Non- 105.9 BUN/Creatinine Ratio 23.8 Random Glucose 89 mg/dl Calcium Level 8.8 mg/dl Urine Test NEG Imaging: MRI with and without brain- Unremarkable unenhanced MRI of the brain. Mucosal thickening of the maxillary and ethmoid sinuses. An air-fluid level within the right maxillary sinus raises the possibility of acute sinusitis. US abdomen- 8 cm x 8.5 cm echogenic mass arising from what appears to be a right ovary. 2. This is most consistent with that of an ovarian dermoid Small left ovarian cyst. Exam: Physical Exam: Constitutional: appearance nourished, healthy and normal Ears, Nose, Mouth and Throat: mucous membranes moist, no injection and skin normal, eyes normal Cardiovascular: normal S-1 and S-2 and regular rate and rhythm Respiratory: clear to auscultation (CTA) and no rales, rhonchi or wheeze Musculoskeletal: no peripheral edema and good distal pulses Skin: no stigmata of neurocutaneous disease noted and normal and intact Eyes: extraocular muscles intact (EOMI) and pupils equal, round and reactive to light (PERRL) miotic NEUROLOGIC EXAMINATION: Mental status: Alert and interactive Oriented to full date and location Oriented to person Speech fluent with no evidence of aphasia Cranial Nerves smile eye brow raise bilaterally symmetric, tongue midline Reflexes: Deep tendon reflexes were symmetrical and graded 2/5. Plantar responses were flexor. Sensory: cool or vibration intact Coordination: finger to nose without bi pass or tremor Gait/Stance: Posture normal. Gait normal: with steady with steps, base, turning, and tandem gait. Motor: Negative for pronator drift of out stretched arms with eyes closed. 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 5/5 bilaterally, hip flex plantar flex ext bilaterally 5/5 Current Inpatient Medications Medications (Trade) Dose Ordered Sig/Power Route Start Time Stop Time Status Last Admin Dose Admin Enoxaparin Sodium (Lovenox Inj) 40 mg HS SC 06/28/16 21:00 07/28/16 20:59 06/28/16 21:31 40 MG Acetaminophen (Tylenol Tab) 650 mg Q4H PRN PO 06/28/16 15:45 07/28/16 15:44 Polyethylene (Miralax Powder Packet) 17 gm DAILY PRN PO 06/28/16 19:00 07/28/16 18:59 Lisinopril (Zestril Tab) 5 mg DAILY PO 06/29/16 09:00 07/29/16 08:59 06/29/16 10:25 5 MG Loratadine (Claritin Tab) 10 mg DAILY PO 06/29/16 09:00 07/29/16 08:59 06/29/16 10:25 10 MG Cefdinir (Omnicef Susp) 300 mg Q12 PO 06/28/16 21:00 07/01/16 09:01 06/29/16 10:25 300 MG Impression 46 year old female with LE numbness and tingling reportedly after Levaquin dosing. possible myelitis, vs peripheral neuritis such as GBS vs paraneoplastic syndrome due to ovarian mass Plan 1. will need MRI brain, c spine, T spine and L spine with and without -L spine completed- brain completed 2. continue pneumonia treatment for appropriate treatment 3. may need LP to evaluate for infection or viral etiology- patient is refusing 4. PT/OT for safety issues 5. fall precautions 6. all previous symptoms have resolved patient wants to go home-urged to complete work up prior to discharge 7. continue antibiotic for resolve of pneumonia 8. follow up with PCP for further medical issues 9. follow with neurology 2-3 weeks for any further testing- Jeana Marks PAC schedule I have seen and discussed above patient with Dr Jeana Webb, neurology Pt seen and examined. Neuro exam nml and pt has had resolution of her sx. The short duration of the pt sx argues against a serious etiology although a myelitis can atypically be of short duration. Pt declines further testing at present. she should be given a follow-up with myself or VLAD Garza and we will reexamine and readdress further MRI and NCV testing. It goes without saying that levoquin should not be used again in this pt. NIALL Webb MD
--- NOTE | 2016-06-29 16:47 | DIAGNOSTIC IMAGING REPORT ---
MRI OF THE BRAIN WITHOUT CONTRAST CLINICAL HISTORY: Acute paresthesias of the bilateral lower extremities. COMPARISON STUDY: None. TECHNIQUE: Utilizing a 1.5 Alondra magnet and dedicated coil, multiplanar, multiecho imaging of the brain was performed without IV contrast. The patient deferred IV contrast administration and therefore post contrast imaging was not performed. FINDINGS: There are no areas of restricted diffusion. No acute intracranial hemorrhage, midline shift or mass effect is present. Brain volume is normal. Ventricular system is normal. The basilar cisterns are patent. There are no extra-axial collections. Flow-voids for the major intracranial vessels are present. No intracranial masses identified on this unenhanced exam. No areas of parenchymal signal abnormality are identified. There is a small air-fluid level within the right maxillary sinus. There is moderate mucosal thickening of the bilateral maxillary sinuses and mild mucosal thickening of the ethmoid sinuses. IMPRESSION: 1. Unremarkable unenhanced MRI of the brain. 2. Mucosal thickening of the maxillary and ethmoid sinuses. An air-fluid level within the right maxillary sinus raises the possibility of acute sinusitis. Electronically signed by: Gian Diggs M.D. 06/29/2016 4:45 PM Dictated Date/Time: 06/29/2016 4:39 PM
--- NOTE | 2016-06-29 16:54 | DIAGNOSTIC IMAGING REPORT ---
MRI OF THE CERVICAL SPINE WITHOUT CONTRAST CLINICAL HISTORY: Acute paresthesias. COMPARISON: None. TECHNIQUE: Utilizing a 1.5 Alondra magnet and dedicated coil, multiplanar, multiecho imaging of the cervical spine was performed without IV contrast. The patient deferred IV contrast administration and therefore post contrast imaging was not performed. FINDINGS: There is minimal rightward curvature of the cervical spine. Alignment is otherwise anatomic. Vertebral body heights are maintained. Cervical cord signal and caliber are normal. There is no intracanalicular mass or fluid collection. Apparent increased cord signal at the T2 level shown on one STIR sequence is not confirmed on the other sequences and is likely artifactual. No intracanalicular mass or fluid collection is present. A 1 cm T1 and T2 hyperintense lesion within the T2 vertebral bodies consistent with a hemangioma. C2-C3: The central canal and neural foramen are patent. C3-C4: The central canal and neural foramen are patent. C4-C5: The central canal and neural foramen are patent. C5-C6: The central canal and neural foramen are patent. C6-C7: The central canal and neural foramen are patent. C7-T1: The central canal and neural foramen are patent. IMPRESSION: 1. Patent central canal and neural foramen. No disc herniation. 2. No cervical cord signal abnormality. Apparent increased cord signal at the T2 level is only shown on one sequence and not confirmed on the remainder of the sequences. This is likely artifactual. Electronically signed by: Gian Diggs M.D. 06/29/2016 4:53 PM Dictated Date/Time: 06/29/2016 4:46 PM
[2016-06-29] MEDS ORDERED: CEFD1CAP14 PO (17:19)
--- NOTE | 2016-06-29 17:21 | Discharge Instructions ---
Discharge Instructions Admission Reason for Admission: Paresthesia Of Bilateral Legs Discharge Discharge Diagnosis / Problem: Bilateral Lower Extremity Paresthesias Discharge Goals Goal(s): Decrease discomfort, Improve function, Diagnostic testing, Therapeutic intervention Activity Recommendations Activity Limitations: resume your previous activity . Instructions / Follow-Up Instructions / Follow-Up Please follow-up with Dr. Painter on July 07 @ 11:40AM Please follow-up with Dr. Joseph, neurology as soon as possible to complete work-up Return to the ER with any similar symptoms Current Hospital Diet Patient's current hospital diet: AHA Diet (Heart Healthy) Discharge Diet Recommended Diet: Regular Diet Pending Studies Studies pending at discharge: no Medical Emergencies . Who to Call and When: Medical Emergencies: If at any time you feel your situation is an emergency, please call 911 immediately. . Non-Emergent Contact Non-Emergency issues call your: Primary Care Provider, Neurologist . . "Provider Documentation" section prepared by Tyler Gaytan. VTE Core Measure Inpt VTE Proph given/why not?: Enoxaparin (Lovenox)SQ
--- NOTE | 2016-06-29 17:22 | Discharge Summary ---
Discharge Summary Admission Date: Jun 28, 2016 at 15:40 Discharge Date: Jun 29, 2016 Discharge Disposition: Home Principal Diagnosis: Bilateral Lower Extremity Paresthesias Community Acquired Pneumonia Medication Reconciliation Continued Medications: Cefdinir (Omnicef) 300 Mg Cap 300 MG PO Q12H for 2 Days, #4 CAP (This prescription has been renewed) X 10 DAYS (FILLED 06/22/16) Lisinopril (Prinivil) 5 Mg Tab 5 MG PO DAILY, 1 Refill Loratadine (Claritin) 10 Mg Tab 10 MG PO DAILY, TAB Admission Information HPI (per Admitting provider): 46 yoF with h/o HTN presents today with numbness in her lower legs to just above the knee since Tue/Tue (2-3 days ago). The numbness occurred just after taking one dose of Levaquin which was switched from Omnicef for a treatment course of pneumonia. Her pneumonia was found on xray 7 days ago () and at that time she was started on Omnicef. She developed some loose stools and was given Levaquin on Tuesday. Within 1 hour she became loopy and appearing doped up to her , and the numbness started around that time or one day later but she can't remember exactly. She denies any recent vaccines. She is not sure of her allergy to Ciprofloxacin in the past. She has no h/o GBS in the past. She does report problems with walking but denies any dizziness or lightheadedness and states that it is more related to where her foot is in space that causes difficulty walking. She denies any weakness in her extremities. She reports no saddle paresthesias. Physical Exam (per Admitting): GEN: WNWD, in no acute distress, alert and appropriate HEENT: NC/AT, PERRL, normal sclerae CARDIO: reg rate, S1/2 heard without m/g/r LUNGS: CTA bilaterally, no crackles, rales or wheezes, good diaphragmatic excursion ABD: soft, non-tender, non-distended, no rebound or guarding EXTREMITY: no LE swelling or edema, extremities are warm and well-perfused NEURO: CN 2-12 grossly intact, sensation intact throughout, however, there is numbness to palpation on both soles of feet and on both medial calves, (reflexes ) BR 2+ bilat, knee 2+ on right, could not elicit on L, achilles 2+ bilat MUSC: 5/5 strength throughout, no focal deficits, gait not assessed SKIN: warm and dry Hospital Course This is a 46 year old female with PMH of obesity and HTN with recent diagnosis of community acquired pneumonia presented with bilateral lower extremity numbness/tingling which has since resolved Bilateral Lower Extremity Paresthesias/Numbness patient presented with bilateral numbness up to both knees myelitis vs. peripheral neuritis? 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 for a total of 10 days, end date: 07/01 HTN BP controlled; cont. home medications DVT ppx SCDs FULL CODE Total time spent on discharge = 25 minutes This includes examination of the patient, discharge planning, medication reconciliation, and communication with other providers. Discharge Instructions Please follow-up with Dr. Painter on July 07 @ 11:40AM Please follow-up with Dr. Joseph, neurology as soon as possible to complete work-up Return to the ER with any similar symptoms
--- NOTE | 2016-06-29 19:38 | OB/GYN Progress Note ---
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 I was called for a routine consult I came to see her but she was discharged already I was not notified before her d/c I will arrange to see her in the office Thank you
[2016-09-14] MEDS ORDERED: MULT-506 PO (10:33)
[2016-09-14] MEDS ORDERED: RANI150T3 PO (10:33)
[2016-10-02] MEDS ORDERED: MTR600X PO (10:16)
[2016-10-02] MEDS ORDERED: OXYC-57 PO (10:16)
== END 2016-06-29 18:00 | disposition home or self-care (01) ==
LOC: ENRESERVTM → ENRESERVDT → C.EDB 10:20 → C.MSICU 15:40
PROVIDERS: ADMIT Hospitalist; ATTEND Family Medicine
DX: R20.2 Paresthesia of skin (principal); J18.9 Pneumonia, unspecified organism; D27.0 Benign neoplasm of right ovary; I10 Essential (primary) hypertension; J30.9 Allergic rhinitis, unspecified; E66.9 Obesity, unspecified; Z51.81 Encounter for therapeutic drug level monitoring; Z79.899 Other long term (current) drug therapy; Z91.81 History of falling; Z68.41 Body mass index [BMI] 40.0-44.9, adult; Z82.49 Family history of ischemic heart disease and other diseases of the circulatory system; Z83.3 Family history of diabetes mellitus

== ENCOUNTER 2016-10-01 05:09 | Inpatient (IN) | payer BC ==
[2016-09-14 10:34] VITALS: Ht 157.5 cm; Wt 109.6 kg
--- NOTE | 2016-09-14 11:04 | PAT Medication Instructions ---
Service Date September 14, 2016. Current Home Medication List Lisinopril (Prinivil), 5 MG PO QAM Loratadine (Claritin), 10 MG PO QAM Multivitamin (Multivitamin), 1 TAB PO QPM Ranitidine Hcl (Zantac), 150 MG PO QAM Medication Instructions For Your Scheduled Surgery - Hold the following medications the morning of surgery: Ranitidine Hcl (Zantac), 150 MG PO QAM Lisinopril (Prinivil), 5 MG PO QAM Loratadine (Claritin), 10 MG PO QAM - Take the following medications as scheduled the night before surgery: Multivitamin (Multivitamin), 1 TAB PO QPM If you have any questions please call us at [phone] (Asha Moreno PA-C) or [phone] or [phone]
[2016-09-14 12:00] LABS: BASO % 0.3 %; BASO ABS # 0.02 K/uL (0-0.2); COMPLETE YES; EOS % 1.9 %; HEMATOCRIT 42.1 % (37-47); IG% 0.1 %; LYMPH % 28.6 %; MEAN CELL VOLUME 85.9 fL (80-100); MEAN CORPUSCULAR HEMOGLOBIN 27.6 pg (25-34); MEAN CORPUSCULAR HGB CONC 32.1 g/dl (32-36); MEAN PLATELET VOLUME 9.1 fL (7.4-10.4); MONO % 7.9 %; NEUT % 61.2 %; PLATELET COUNT 283 K/uL (130-400)
[2016-09-14 12:56] LABS: BUN/CREATININE RATIO 25.6 (10-20); CALCIUM 9.1 mg/dl (8.5-10.1); CREATININE 0.66 mg/dl (0.60-1.20); POTASSIUM 4.2 mmol/L (3.5-5.1)
[2016-10-01] VITALS (12 sets, daily range): BP systolic 121–175; BP diastolic 74–94; PULSE 76–106; TEMP 36.3–37.1; O2SAT 2–99
[~2016-10-01] VITALS: Ht 157.5 cm; Wt 109.6 kg
[~2016-10-01 05:09] MED LIST changes: +LISI5TAB PO; +MULT-506 PO; +RANI150T3 PO
[2016-10-01] MEDS ORDERED: LACTATED RINGER'S 1000ML 1,000 ML IV SCH ×3 (06:00→10:42)
[2016-10-01] MEDS ORDERED: CEFAZOLIN 3000 MG/65 ML D5W 50 ML IV SCH (06:00)
[2016-10-01] MEDS ORDERED: LIDOCAINE HCL 2% 2 ML VIAL (20MG/ML) ONE (06:22)
[2016-10-01] MEDS ORDERED: NEOSTIGMINE METHYLSULFATE 5 MG/5 ML SYR ONE (06:22)
[2016-10-01] MEDS ORDERED: DEXAMETHASONE SOD INJ 4 MG/ML VIAL ONE (06:22)
[2016-10-01] MEDS ORDERED: GLYCOPYRROLATE INJ 0.2 MG/ML VIAL ONE (06:22)
[2016-10-01] MEDS ORDERED: PROPOFOL IV EMULSION 10 MG/ML 20 ML VIAL IV ONE (06:22)
[2016-10-01] MEDS ORDERED: ROCURONIUM BROMIDE 10 MG/ML 5 ML VIAL ONE (06:22)
[2016-10-01] MEDS ORDERED: ONDANSETRON INJ 2 MG/ML 2 ML VIAL ONE ×2 (06:22→07:22)
[2016-10-01] MEDS ORDERED: MIDAZOLAM HCL 1 MG/ML 2ML VIAL ONE (06:22)
[2016-10-01] MEDS ORDERED: FENTANYL CITRATE INJ 50 MCG/1 ML 2 ML VIAL ONE ×3 (06:23→08:48)
[2016-10-01 06:35] LABS: BASO % 0.5 %; BASO ABS # 0.03 K/uL (0-0.2); EOS % 3.3 %; HEMATOCRIT 39.3 % (37-47); IG% 0.2 %; LYMPH % 31.2 %; LYMPH ABS # 1.97 K/uL (1.2-3.4); MEAN CORPUSCULAR HEMOGLOBIN 28.4 pg (25-34); MEAN PLATELET VOLUME 9.4 fL (7.4-10.4); NEUT % 54.8 %; PLATELET COUNT 272 K/uL (130-400); RED BLOOD COUNT 4.57 M/uL (4.2-5.4); WHITE BLOOD COUNT 6.31 K/uL (4.8-10.8)
[2016-10-01 06:37] LABS: COMPLETE YES; MEAN CORPUSCULAR HGB CONC 33.1 g/dl (32-36)
[2016-10-01] MEDS ORDERED: HYDROmorphone INJ 2 MG/ML SYR/VIAL ONE (06:37)
--- NOTE | 2016-10-01 06:46 | History & Physical Bridge Note ---
H&P Re-Evaluation Bridge Note: I have examined the patient, reviewed the History & Physical and in the interval since the performance of the History & Physical I have noted the following changes of clinical significance: No changes noted
[2016-10-01] MEDS ORDERED: SCOPOLAMINE 1.5 MG TDSY TD ONE (06:48)
[2016-10-01 07:07] LABS: PREG INTERNAL NEGATIVE QC NEG CLEAR BACKGROUND; PREG INTERNAL POSITIVE QC POS CONTROL LINE
[2016-10-01] MEDS ORDERED: METHYLENE BLUE 0.5% 10 ML VIAL ONE (07:20)
[2016-10-01] MEDS ORDERED: BUPIVACAINE 0.5 % 5 MG/1 ML MPF 30ML VIAL ONE (07:20)
[2016-10-01] MEDS ORDERED: CISATRACURIUM BESYLATE IV SOLN 2 MG/ML 10 ML VIAL ONE (07:22)
[2016-10-01] MEDS ORDERED: SUCCINYLCHOLINE CHLORIDE 20 MG/ML 10 ML VIAL IV ONE (07:22)
[2016-10-01] MEDS ORDERED: MINERAL OIL LIGHT 10 ML BTL ONE (07:24)
[2016-10-01] MEDS ORDERED: ESMOLOL HCL 10 MG/ML 10 ML VIAL ONE (10:22)
[2016-10-01] MEDS ORDERED: MAGNESIUM HYDROXIDE SUSP 30 ML UDC PO PRN (10:45)
[2016-10-01] MEDS ORDERED: BISACODYL 10 MG SUPP PR PRN (10:45)
[2016-10-01] MEDS ORDERED: SENNA 8.6 MG TAB PO PRN (10:45)
[2016-10-01] MEDS ORDERED: ONDANSETRON INJ 2 MG/ML 2 ML VIAL IV PRN ×2 (10:45→11:00)
[2016-10-01] MEDS ORDERED: OXYCODONE/ACETAMINOPHEN 5-325 TAB PO PRN (10:45)
--- NOTE | 2016-10-01 10:54 | [facility] Post Operative Brief Note ---
Immediate Operative Summary Operative Date October 01, 2016. Pre-Operative Diagnosis Heavy Menstrual Bleeding, Right Dermoid Cyst of Ovary, pelvic pain, Hx endometriosis Post-Operative Diagnosis Same as preoperative. Left adnexa adhesions Procedure(s) Performed Total Laparoscopic Hysterectomy with Bilateral Salpingo-oophorectomy, extensive lysis of adhesions Cystoscopy. Surgeon Promotions Producer Surgeon(s) Estimated Blood Loss 50ML Findings Upon laparoscopic exam the right ovary was enlarged from a known dermoid cyst measuring approximately 8 cm. The left tube and ovary were tightly adhered to the ipsilateral side wall and descending colon. The uterus was at midline and freely mobile and was grossly normal. The left ovary and tube were carefully dissected away from the pelvic wall and the colon and was successfully removed. The right ovary was also successfully removed without difficulty. Once the uterus and cervix were amputated all specimens were removed from the vagina including the uterus, cervix, left ovary and tube and right ovary and tube. Anesthesia was then instructed to push methylene blue. Once the vaginal cuff was closed a cystoscopy was performed. Bilateral ureteral openings spilled blue tinged urine indicating bilateral ureters were intact. There was no injury or suture noted within the bladder wall as well. Patient tolerated the surgery well and was sent to recovery with stable vital signs. Fluids (cc crystalloids) 1200 Specimens A. Uterus and Cervix B. Right Ovary, Fallopian Tube and Cyst C. Left Ovary , Fallopian Tube and Cyst. Drains Ravi to gravity Anesthesia General Complication(s) None Disposition Recovery Room / PACU
[2016-10-01] MEDS ORDERED: LABETALOL HCL IV 5 MG/ML 20ML IV PRN (11:00)
[2016-10-01] MEDS ORDERED: EpHEDrine SULFATE INJ 50 MG/ML AMP IV PRN (11:00)
[2016-10-01] MEDS ORDERED: KETOROLAC TROMETHAMINE 30 MG/ML VIAL IV. PRN (11:00)
[2016-10-01] MEDS ORDERED: PROMETHAZINE HCL INJ 12.5 MG in SODIUM CHLORIDE 0.9% 50ML 50 ML IV PRN (11:00)
[2016-10-01] MEDS ORDERED: HYDROmorphone INJ 1 MG/ML SYR IV PRN (11:00)
[2016-10-01] MEDS ORDERED: FLUMAZENIL 0.1 MG/1 ML 10 ML VIAL IV PRN (11:00)
[2016-10-01] MEDS ORDERED: ATROPINE SULFATE 0.1 MG/ML 5ML SYR IV PRN (11:00)
[2016-10-01] MEDS ORDERED: NALOXONE HCL 0.4 MG/1 ML VIAL/CARP IV PRN (11:00)
[2016-10-01] MEDS: KETOROLAC TROMETHAMINE 30 MG/ML VIAL IV. PRN ×2 (12:01→18:03)
--- NOTE | 2016-10-01 12:05 | Anesthesiology Progress Note ---
Anesthesia Post Op Note Date & Time October 01, 2016 at 12:05 Vital Signs Pain Intensity: 5.0 Vital Signs Past 12 Hours Date Time Temp Pulse Resp B/P Pulse Ox O2 Delivery O2 Flow Rate FiO2 10/01/16 11:30 36.1 80 12 129/91 97 Nasal Cannula 2 10/01/16 11:20 81 12 130/86 95 Nasal Cannula 2 10/01/16 11:10 83 13 128/83 96 Mask 10 10/01/16 11:00 87 11 121/92 100 Mask 10 10/01/16 10:50 36.4 90 16 110/76 98 Mask 10 10/01/16 05:34 37.1 88 16 175/94 2 Room Air Notes Mental Status: alert / awake / arousable, participated in evaluation Pt Amnestic to Procedure: Yes Nausea / Vomiting: adequately controlled Pain: adequately controlled Airway Patency, RR, SpO2: stable & adequate BP & HR: stable & adequate Hydration State: stable & adequate Anesthetic Complications: no major complications apparent
[2016-10-01] MEDS: CHECK SCOPOLAMINE PATCH PLACEMENT SCH ×2 (15:20→23:47)
[2016-10-01 19:22] LABS: HEMATOCRIT 38.1 % (37-47)
--- NOTE | 2016-10-01 20:59 | OPERATIVE REPORT ---
DATE OF OPERATION: 10/01/2016 PREOPERATIVE DIAGNOSES: 1. Heavy menstrual bleeding. 2. Right dermoid cyst of ovary. 3. Pelvic pain. 4. History of endometriosis. POSTOPERATIVE DIAGNOSES: 1. Same. 2. Left adnexal adhesions. OPERATIVE PROCEDURE: Total laparoscopic hysterectomy with bilateral salpingo-oophorectomy, extensive lysis of adhesions and a cystoscopy. SURGEON: Dr. Cunningham. CHILDREN'S SERVICE WORKER: Dr. Shore. ANESTHESIA: General. ESTIMATED BLOOD LOSS: 50 mL IV FLUIDS: 1200 mL crystalloids. URINE OUTPUT: 900 mL clear yellow urine. SPECIMENS: Uterus and cervix, right ovary and fallopian tube with a dermoid cyst and left ovary and fallopian tube. DRAINS: Ravi to gravity. COMPLICATIONS: None. DISPOSITION: Recovery room. OPERATIVE FINDINGS: Upon laparoscopic exam, the right ovary was enlarged from a known dermoid cyst measuring approximately 8 cm. The left tube and ovary were tightly adhered to the ipsilateral side wall and descending colon. The uterus was at midline and freely mobile and was grossly normal. The left ovary and tube were carefully dissected away from the pelvic wall and the colon and was successfully removed. The right ovary was also successfully removed without difficulty. Once the uterus and cervix were amputated, all specimens were removed from the vagina and cleaned the uterus, cervix, left ovary and tube and right ovary and tube. Anesthesia were then instructed to push methylene blue. Once the vaginal cuff was closed and a cystoscopy was performed noting bilateral ureteral openings spilling blue-tinged urine indicating bilateral ureters were intact. There was no injury or suture noted within the bladder wall as well. The patient tolerated the surgery well and were sent to recovery with stable vital signs. d OPERATIVE PROCEDURE IN DETAIL: The patient was taken to the operating room where general anesthesia was administered. Once the anesthesia was found to be adequate, the patient was placed in the dorsal lithotomy position and was prepped and draped in a manner appropriate for the procedure. A weighted speculum was placed into the vagina and the anterior lip of the cervix was grasped with a single tooth tenaculum. A large VCare uterine manipulator was then placed within the uterus in an anteverted fashion and was suture ligated to the cervix at the 12 o'clock and 6 o'clock position with 0 Vicryl suture. Once the VCare was in place, the weighted speculum was removed from the vagina along with a single tooth tenaculum. A sterile Ravi catheter was then placed within the bladder and remained indwelling throughout the entire procedure. The patient was then readied for the laparoscopic portion of the procedure. Attention was directed towards the abdomen. 0.5% Marcaine was injected below the umbilicus and an 11-mm skin incision was made below the umbilicus in a horizontal fashion. The fascia was then grasped with Yo clamps, elevated, and a Veress needle was then placed within the abdomen. Normal saline was injected with no fecal content aspirated. Pneumoperitoneum was then created. The Veress needle was then removed and an 11 mm trocar was then placed within the abdomen under direct laparoscopic visualization. The patient was then placed within the Trendelenburg position and the bowel was displaced away from the pelvis. A second 11 mm skin incision was made on the left side of the abdomen and a second 11 mm trocar was placed within the abdomen under direct laparoscopic visualization. A third 11 mm skin incision was made on the right side of the abdomen and a third 11 mm trocar was placed within the abdomen under direct laparoscopic visualization. A thorough examination of the abdomen and pelvis was then performed. Attention was then directed towards the right round ligament which was cauterized and transected. The right uteroovarian ligament was cauterized and transected, continued inferiorly through the broad ligament and the anterior leaf of the broad ligament was cauterized and transected across the lower uterine segment, creating the bladder flap. The bladder was then pushed away from the lower uterine segment. Likewise on the left side, the left round ligament was cauterized and transected. The left uteroovarian ligament was cauterized and transected, continued inferiorly through the broad ligament. The anterior leaf of the broad ligament was cauterized and transected across the lower uterine segment and a bladder flap was pushed away from the lower uterine segment. Bilateral ascending uterine arteries were cauterized and transected, continued inferiorly through the cardinal-uterosacral complex, cauterizing and transected and continued inferiorly. Once we were at the level of the [facility] uterine manipulator, the cervix was amputated circumferentially with the LigaSure. Attention was then directed towards the left adnexa. The left ovary and tube were tightly adhered to the side wall. The left ovary and tube were pulled away from the pelvic wall and was carefully lysed away from the descending colon and pelvic wall. The attachment points were cauterized and transected removing the left ovary and tube. Attention was then directed towards the right ovary and tube. The right ovary was noted to be enlarged due to a dermoid cyst. The infundibulopelvic ligament was cauterized and transected, continued inferiorly to the rest of the attachments to the point of the left ovary and tube successfully removing the right ovary and tube. Once all specimens were amputated, they were all removed from the vagina. A sterile glove was placed within the vagina to maintain a pneumoperitoneum. The vaginal cuff was then closed with 0 Polysorb suture in a continuous locking fashion with the EndoStitch. Anesthesia was then instructed to push methylene blue. The peritoneum was reapproximated with 0 Polysorb suture in a continuous running fashion with the EndoStitch. The abdomen and pelvis were then copiously irrigated with warm saline solution. Excellent hemostasis was noted. All instruments were then removed from the abdomen and as much CO2 gas was allowed to percolate through open cannulas. Attention was then directed towards the perineum. The sterile glove was removed from the vagina. The Ravi catheter was removed from the bladder. The cystoscope was then introduced into the bladder. Bilateral ureteral openings spilled blue-tinged urine indicating bilateral ureters were intact. There was no injury to the bladder wall or suture within the bladder wall. At this point, the procedure was found to be complete. The cystoscope was removed and a sterile Ravi catheter was placed within the bladder. Attention was then directed towards the abdomen. All 3 trocars were removed from the abdomen. The fascia of all 3 skin incisions were reapproximated with 0 Vicryl suture in a [id number] interrupted fashion. All 3 skin incisions were closed with 4-0 Monocryl in a subcuticular fashion. Excellent hemostasis was noted of all 3 incisions. All sponge and instrument counts were found to be correct x2. The patient tolerated the surgery well and were sent to recovery with stable vital signs. I attest to the content of the Intraoperative Record and any orders documented therein. Any exceptio ns are noted below.
[2016-10-02] MEDS ORDERED: NURSING VERBAL MED ORDER ONE
[2016-10-02] MEDS: IBUPROFEN 600 MG TAB PO PRN ×3 (00:50→10:42)
[2016-10-02 03:35] VITALS: BP 125/78; PULSE 106; TEMP 36.9; O2SAT 94
[2016-10-02 07:08] LABS: BASO % 0.1 %; BASO ABS # 0.01 K/uL (0-0.2); COMPLETE YES; EOS % 0.3 %; HEMATOCRIT 38.3 % (37-47); IG% 0.3 %; LYMPH % 23.4 %; LYMPH ABS # 2.93 K/uL (1.2-3.4); MEAN CELL VOLUME 86.3 fL (80-100); MEAN CORPUSCULAR HEMOGLOBIN 28.4 pg (25-34); MEAN CORPUSCULAR HGB CONC 32.9 g/dl (32-36); MEAN PLATELET VOLUME 9.3 fL (7.4-10.4); MONO % 6.9 %; PLATELET COUNT 278 K/uL (130-400); RED BLOOD COUNT 4.44 M/uL (4.2-5.4); WHITE BLOOD COUNT 12.54 K/uL (4.8-10.8)
[2016-10-02 07:38] LABS: BUN/CREATININE RATIO 17.4 (10-20); CALCIUM 8.4 mg/dl (8.5-10.1); CREATININE 0.71 mg/dl (0.60-1.20); POTASSIUM 3.9 mmol/L (3.5-5.1)
[2016-10-02] MEDS: CHECK SCOPOLAMINE PATCH PLACEMENT SCH (07:42)
[2016-10-02 08:00] VITALS: BP 136/86; PULSE 97; TEMP 36.7; O2SAT 99
--- NOTE | 2016-10-02 10:14 | Surgery Progress Note ---
Surgery Progress Note Date of Service October 02, 2016. Subjective Post OP Day: 1 + ambulating, + feeling well Doing well, no concerns. Pain well controlled. Ambulating without difficulty. Tolerating regular diet. Would like to go home today. Objective Vital Signs: Date Time Temp Pulse Resp B/P Pulse Ox O2 Delivery O2 Flow Rate FiO2 10/02/16 08:00 99 Room Air 10/02/16 08:00 36.7 97 20 136/86 99 Room Air 10/02/16 03:35 36.9 106 20 125/78 94 Room Air 10/01/16 23:15 37.1 104 16 121/74 94 Room Air 10/01/16 23:15 Room Air 10/01/16 19:25 36.9 106 18 125/80 96 Room Air 10/01/16 16:30 96 Room Air 10/01/16 15:30 95 Room Air 10/01/16 15:21 99 Room Air 10/01/16 15:20 36.6 88 20 125/80 98 Nasal Cannula 2.0 10/01/16 15:20 98 Nasal Cannula 10/01/16 14:45 36.6 82 16 138/80 98 Nasal Cannula 2.0 10/01/16 13:45 36.5 88 16 148/82 98 Nasal Cannula 2.0 10/01/16 12:45 36.3 77 16 135/82 99 Nasal Cannula 2.0 10/01/16 12:15 36.3 76 16 138/94 98 Nasal Cannula 2.0 10/01/16 11:45 36.5 79 18 131/85 97 Nasal Cannula 2.0 10/01/16 11:45 97 Nasal Cannula 2.0 10/01/16 11:45 97 Nasal Cannula 2.0 10/01/16 11:30 36.1 80 12 129/91 97 Nasal Cannula 2 10/01/16 11:20 81 12 130/86 95 Nasal Cannula 2 10/01/16 11:10 83 13 128/83 96 Mask 10 10/01/16 11:00 87 11 121/92 100 Mask 10 10/01/16 10:50 36.4 90 16 110/76 98 Mask 10 General Appearance: WD/WN, no apparent distress Respiratory/Chest: chest non-tender, lungs clear Cardiovascular: regular rate, rhythm Abdomen: normal bowel sounds, soft Incision(s): clean, dry, intact Extremities: normal range of motion, non-tender, no calf tenderness Laboratory Results: Results Past 24 Hours Test 10/01/16 19:15 10/02/16 06:26 Range/Units Hemoglobin 12.4 12.6 12.0-16.0 g/dL Hematocrit 38.1 38.3 37-47 % White Blood Count 12.54 4.8-10.8 K/uL Red Blood Count 4.44 4.2-5.4 M/uL Mean Corpuscular Volume 86.3 80-100 fL Mean Corpuscular Hemoglobin 28.4 25-34 pg Mean Corpuscular Hemoglobin Concent 32.9 32-36 g/dl Platelet Count 278 130-400 K/uL Mean Platelet Volume 9.3 7.4-10.4 fL Neutrophils (%) (Auto) 69.0 % Lymphocytes (%) (Auto) 23.4 % Monocytes (%) (Auto) 6.9 % Eosinophils (%) (Auto) 0.3 % Basophils (%) (Auto) 0.1 % Neutrophils # (Auto) 8.66 1.4-6.5 K/uL Lymphocytes # (Auto) 2.93 1.2-3.4 K/uL Monocytes # (Auto) 0.86 0.11-0.59 K/uL Eosinophils # (Auto) 0.04 0-0.5 K/uL Basophils # (Auto) 0.01 0-0.2 K/uL RDW Standard Deviation 44.0 36.4-46.3 fL RDW Coefficient of Variation 13.9 11.5-14.5 % Immature Granulocyte % (Auto) 0.3 % Immature Granulocyte # (Auto) 0.04 0.00-0.02 K/uL Sodium Level 142 136-145 mmol/L Potassium Level 3.9 3.5-5.1 mmol/L Chloride Level 110 98-107 mmol/L Carbon Dioxide Level 25 21-32 mmol/L Anion Gap 7.0 3-11 mmol/L Blood Urea Nitrogen 12 7-18 mg/dl Creatinine 0.71 0.60-1.20 mg/dl Est Creatinine Clear Calc Drug Dose 118.0 ml/min Estimated GFR () 120.1 Estimated GFR (Non- 103.6 BUN/Creatinine Ratio 17.4 10-20 Random Glucose 101 70-99 mg/dl Calcium Level 8.4 8.5-10.1 mg/dl Assessment & Plan POD# 1 s/p TLH with BSO, cystoscopy -D/C home today -F/U in 1-2 weeks.
[2016-10-02] MEDS ORDERED: MTR600X PO (10:16)
[2016-10-02] MEDS ORDERED: OXYC-57 PO (10:16)
--- NOTE | 2016-10-02 10:17 | Discharge Instructions ---
Discharge Instructions Date of Service October 02, 2016. Admission Reason for Admission: Right Dermoid Cyst of Ovary, Heavy Menstrual Bleed Discharge Discharge Diagnosis / Problem: Total laparoscopic hysterectomy with BSO Discharge Goals Goal(s): Routine recovery after surgery Activity Recommendations Activity Limitations: per Instructions/Follow-up section . Instructions / Follow-Up Instructions / Follow-Up POST OPERATIVE: BOWEL FUNCTION/MEDICATIONS: 1. Constipation pain and discomfort are the most common complaints 5-7 days after surgery. Points 2-6 address the things that can help. 2. Chewing gum can help stimulate the gut and help improve digestion and motility. 3. Milk of Magnesia 1-2 times per day until return of bowel function. 4. Colace is a stool softener that helps. Taking this 2-3 times per day until bowel function returns to normal is highly recommended. 5. Dulcolax is a laxative that may be used if several days have passed without a bowel movement. Alternatively Miralax may be used daily instead. 6. Drink plenty of fluids as this will also reduce constipation. 7. Narcotic pain medications will be prescribed by your physician. They are safe to use and we encourage you to use them. If you are not allergic, ibuprofen will also be prescribed. Many patients will be able to transition off of the narcotic medications to ibuprofen by postoperative day 3. ACTIVITY RECOMMENDATIONS: 1. Get plenty of rest and listen to your body. If you are tired, take a nap. 2. You may shower, but do not take a tub bath until you see your doctor at the 2 week post operative visit. 3. Absolutely NO intercourse and nothing in the vagina until you are examined by your doctor at the 6 week visit. At that visit it will be determined when such activities can be resumed. This can range from 6-12 weeks after your surgery depending on healing time. 4. The main physical activity in the first week should be walking. By the second week you can slowly increase activity. There are no limits on walking up and down stairs. 5. Do not lift more than 5-10 lbs for 4 weeks. Remember the "one-handed rule", i.e. if you can lift something with only one hand it's likely okay. 6. 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 "Overdoing it" can lead to incisions not healing, pain and vaginal bleeding , so again, listen to your body. 7. Driving can be resumed when you feel able. Do not drive within 24 hours of taking a narcotic medication. EXPECTATIONS: 1. Vaginal spotting, bleeding and discharge are common after surgery. There may even be an odor to the discharge which is often related to sutures used in the vagina. If you experience heavy vaginal bleeding, call the office number day or night [phone]. 2. Bladder discomfort is common after surgery from the catheter. This usually resolves in 1-2 weeks. 3. By the end of the 3rd or 4th week you should be feeling much better. It may take up to 6 weeks for your energy levels to return to normal. 4. Narcotic medications have side effects such as: dizziness, headache, nausea and/or vomiting. If you suspect your pain medication is causing problems, call our office and we may be able to prescribe an alternate medication. 5. The skin incisions are often covered with a liquid bandage. This will gradually peel off over time. CALL THE OFFICE IF YOU HAVE ANY OF THE FOLLOWIN. Temperature of 101 degrees or higher. 2. Severe abdominal or pelvic pain not relieved by pain medication. 3. Persistent nausea or vomiting. 4. Increased pain with urination or difficulty urinating. 5. Bright red bleeding that soaks more than 1 pad per hour. CONTACT PHONE NUMBERS: Main Office: [phone] FOLLOW-UP: Post-Operative Appointments: * Individual instructions will have been given about the timing of your first examination, but this is usually at the end of the second week home. * You will need to call the office at [phone] soon after discharge to make the appointment for your post-op check-up if it has not already been scheduled. * Additional information regarding activity, sexual intercourse and when to return to work will be given at this appointment. WE WISH YOU A SPEEDY RECOVERY! Current Hospital Diet Patient's current hospital diet: Regular Diet Discharge Diet Recommended Diet: Regular Diet Procedures Procedures Performed: Total Laparoscopic Hysterectomy with Bilateral Salpingo-oophorectomy, extensive lysis of adhesions Cystoscopy. Pending Studies Studies pending at discharge: no Medical Emergencies . Who to Call and When: Medical Emergencies: If at any time you feel your situation is an emergency, please call 911 immediately. . Non-Emergent Contact Non-Emergency issues call your: Detail Drafter Call Non-Emergent contact if: you have a fever, your pain is not controlled, wound has increased drainage, wound has increased redness, wound has increased pain . . "Provider Documentation" section prepared by Wild Cunningham. . VTE Core Measure Inpt VTE Proph given/why not?: Treatment not indicated
[2016-10-02 11:05] VITALS: BP 136/86; PULSE 97; TEMP 36.7; O2SAT 99
--- NOTE | 2016-10-12 19:21 | Discharge Summary ---
Discharge Summary Date of Service October 12, 2016. Discharge Summary Admission Date: October 01, 2016 at 06:35 Discharge Date: October 02, 2016 Principal Diagnosis: Heavy Menstrual Bleeding, Right Dermoid Cyst, Chronic pelvic pain, Hx endometriosis Procedures: Total laparoscopic hysterectomy with bilateral salpingo-oophorectomy, extensive lysis of adhesions and a cystoscopy. Medication Reconciliation New Medications: Ibuprofen (Ibuprofen) 600 Mg Tab 600 MG PO Q4H PRN for Pain, HARMAN, Cramping, Edema, #30 TAB Oxycodone/Acetaminophen 5MG/325MG (Percocet 5MG/325MG) Tab 1-2 TAB PO Q4H PRN for HARMAN, Cramping, edema, #30 TAB PAIN Continued Medications: Lisinopril (Prinivil) 5 Mg Tab 5 MG PO QAM, 1 Refill Loratadine (Claritin) 10 Mg Tab 10 MG PO QAM, TAB Multivitamin (Multivitamin) Tab 1 TAB PO QPM, TAB Ranitidine Hcl (Zantac) 150 Mg Tab 150 MG PO QAM, TAB Admission Information HPI (per Admitting provider): Patient is a 46 y/o With a long history of chronic pelvic pain and known endometriosis along with heavy bleeding has failed medical management and has opted to proceed with a hysterectomy with RSO for a known enlarged right ovarian dermoid cyst. After counseling about risks,benefits and alternatives she agreed to proceed with her scheduled surgery. Physical Exam (per Admitting): General Appearance: WD/WN, no apparent distress Respiratory/Chest: chest non-tender, lungs clear Cardiovascular: regular rate, rhythm Abdomen/GI: normal bowel sounds, soft Neurologic/Psych: alert, oriented x 3 Skin: normal color, warm/dry, no rash Hospital Course Patient underwent a total laparoscopic hysterectomy with RSO and lysis of adhesions on the day of admission without complications. Her postop recovery was uneventful. Her guadalupe catheter was removed on POD # 1. Her diet and activity were advanced as tolerated. Her incisions remained c/d/i. She was discharged home on POD # 1 with discharge instructions. Total time spent on discharge = 20 mins This includes examination of the patient, discharge planning, medication reconciliation, and communication with other providers. Discharge Instructions POST OPERATIVE: BOWEL FUNCTION/MEDICATIONS: 1. Constipation pain and discomfort are the most common complaints 5-7 days after surgery. Points 2-6 address the things that can help. 2. Chewing gum can help stimulate the gut and help improve digestion and motility. 3. Milk of Magnesia 1-2 times per day until return of bowel function. 4. Colace is a stool softener that helps. Taking this 2-3 times per day until bowel function returns to normal is highly recommended. 5. Dulcolax is a laxative that may be used if several days have passed without a bowel movement. Alternatively Miralax may be used daily instead. 6. Drink plenty of fluids as this will also reduce constipation. 7. Narcotic pain medications will be prescribed by your physician. They are safe to use and we encourage you to use them. If you are not allergic, ibuprofen will also be prescribed. Many patients will be able to transition off of the narcotic medications to ibuprofen by postoperative day 3. ACTIVITY RECOMMENDATIONS: 1. Get plenty of rest and listen to your body. If you are tired, take a nap. 2. You may shower, but do not take a tub bath until you see your doctor at the 2 week post operative visit. 3. Absolutely NO intercourse and nothing in the vagina until you are examined by your doctor at the 6 week visit. At that visit it will be determined when such activities can be resumed. This can range from 6-12 weeks after your surgery depending on healing time. 4. The main physical activity in the first week should be walking. By the second week you can slowly increase activity. There are no limits on walking up and down stairs. 5. Do not lift more than 5-10 lbs for 4 weeks. Remember the "one-handed rule", i.e. if you can lift something with only one hand it's likely okay. 6. 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 "Overdoing it" can lead to incisions not healing, pain and vaginal bleeding , so again, listen to your body. 7. Driving can be resumed when you feel able. Do not drive within 24 hours of taking a narcotic medication. EXPECTATIONS: 1. Vaginal spotting, bleeding and discharge are common after surgery. There may even be an odor to the discharge which is often related to sutures used in the vagina. If you experience heavy vaginal bleeding, call the office number day or night [phone]. 2. Bladder discomfort is common after surgery from the catheter. This usually resolves in 1-2 weeks. 3. By the end of the 3rd or 4th week you should be feeling much better. It may take up to 6 weeks for your energy levels to return to normal. 4. Narcotic medications have side effects such as: dizziness, headache, nausea and/or vomiting. If you suspect your pain medication is causing problems, call our office and we may be able to prescribe an alternate medication. 5. The skin incisions are often covered with a liquid bandage. This will gradually peel off over time. CALL THE OFFICE IF YOU HAVE ANY OF THE FOLLOWIN. Temperature of 101 degrees or higher. 2. Severe abdominal or pelvic pain not relieved by pain medication. 3. Persistent nausea or vomiting. 4. Increased pain with urination or difficulty urinating. 5. Bright red bleeding that soaks more than 1 pad per hour. CONTACT PHONE NUMBERS: Main Office: [phone] Surgical Nurse: [phone] extension [phone] FOLLOW-UP: Post-Operative Appointments: * Individual instructions will have been given about the timing of your first examination, but this is usually at the end of the second week home. * You will need to call the office at soon after discharge to make the appointment for your post-op check-up if it has not already been scheduled. * Additional information regarding activity, sexual intercourse and when to return to work will be given at this appointment. WE WISH YOU A SPEEDY RECOVERY!
== END 2016-10-02 11:05 | disposition home or self-care (01) | DRG 743 ==
LOC: ENRESERVTM → ENRESERVDT → C.ACU 05:09 → C.MS4N 06:35 → CMPBEDREQ 11:49
PROVIDERS: ADMIT Obstetrics & Gynecology; ATTEND Obstetrics & Gynecology
PROC: 8E0WXCZ Robotic Assisted Procedure of Trunk Region (ICD-10-PCS; principal; 2016-10-01 07:00)
PROC: 0UT2FZZ Resection of Bilateral Ovaries, Via Natural or Artificial Opening With Percutaneous Endoscopic Assistance (ICD-10-PCS; principal; 2016-10-01 07:00)
PROC: 0UT9FZZ Resection of Uterus, Via Natural or Artificial Opening With Percutaneous Endoscopic Assistance (ICD-10-PCS; principal; 2016-10-01 07:00)
PROC: 0UT7FZZ Resection of Bilateral Fallopian Tubes, Via Natural or Artificial Opening With Percutaneous Endoscopic Assistance (ICD-10-PCS; principal; 2016-10-01 07:00)
DX: N92.0 Excessive and frequent menstruation with regular cycle (principal); I10 Essential (primary) hypertension; D27.9 Benign neoplasm of unspecified ovary; R10.2 Pelvic and perineal pain; N73.6 Female pelvic peritoneal adhesions (postinfective); Z80.1 Family history of malignant neoplasm of trachea, bronchus and lung; Z83.3 Family history of diabetes mellitus; Z80.3 Family history of malignant neoplasm of breast